=== PATIENT | female | born 1945 | race Caucasian/White ===

== ENCOUNTER 2022-10-13 12:32 | Emergency (ER) | payer MEDICARE, BC, SELFPAY ==
[2022-10-13] VITALS (8 sets, daily range): BP systolic 128–155; BP diastolic 72–86; PULSE 70–79; RESP 17–18; TEMP 36.7–36.9; O2SAT 93–96; BMI 29.9
--- NOTE | 2022-10-13 12:54 | XR_ITS ---
PROCEDURE INFORMATION: Exam: XR Left Shoulder Exam date and time: 10/13/2022 1:26 PM Age: 77 years old Clinical indication: Injury or trauma; Fall; Blunt trauma (contusions or hematomas); Shoulder; Left TECHNIQUE: Imaging protocol: Radiologic exam of the left shoulder. Views: 2 or more views. COMPARISON: No relevant prior studies available. FINDINGS: Bones/joints: There are moderate degenerative changes at the AC joint. Glenohumeral joint is fairly well preserved. No fracture, dislocation or malalignment. Soft tissues: Normal. IMPRESSION: No acute bony abnormalities.
--- NOTE | 2022-10-13 12:54 | CT_ITS ---
PROCEDURE INFORMATION: Exam: CT Head Without Contrast Exam date and time: 10/13/2022 1:29 PM Age: 77 years old Clinical indication: Injury or trauma; Fall; Blunt trauma (contusions or hematomas); Without loss of consciousness; Additional info: Fall-- yesterday -- right sided head pain TECHNIQUE: Imaging protocol: Computed tomography of the head without contrast. Radiation optimization: All CT scans at this facility use at least one of these dose optimization techniques: automated exposure control; mA and/or kV adjustment per patient size (includes targeted exams where dose is matched to clinical indication); or iterative reconstruction. REPORTING DATA: Count of CT and Cardiac NM exams in prior 12 months: This patient has received 3 known CTs and 0 known cardiac nuclear medicine studies in the 12 months prior to the current study. COMPARISON: No relevant prior studies available. FINDINGS: Brain: Age-related involutional changes and chronic microvascular ischemic disease. No evidence for acute transcortical infarct. No mass effect or midline shift. No extra-axial collection. No acute intracranial hemorrhage. Basal cisterns are patent. Cerebral ventricles: No ventriculomegaly. Paranasal sinuses: Visualized sinuses are unremarkable. No fluid levels. Mastoid air cells: Visualized mastoid air cells are well aerated. Orbital cavities: Bilateral cataract surgery. Left scleral banding. Bones/joints: Unremarkable. No acute fracture. Soft tissues: Unremarkable. IMPRESSION: No evidence for acute transcortical infarct, acute intracranial hemorrhage, or mass effect.
--- NOTE | 2022-10-13 12:54 | CT_ITS ---
PROCEDURE INFORMATION: Exam: CT Cervical Spine Without Contrast Exam date and time: 10/13/2022 1:32 PM Age: 77 years old Clinical indication: Injury or trauma; Fall; Blunt trauma TECHNIQUE: Imaging protocol: Computed tomography of the cervical spine without contrast. Radiation optimization: All CT scans at this facility use at least one of these dose optimization techniques: automated exposure control; mA and/or kV adjustment per patient size (includes targeted exams where dose is matched to clinical indication); or iterative reconstruction. REPORTING DATA: Count of CT and Cardiac NM exams in prior 12 months: This patient has received 3 known CTs and 0 known cardiac nuclear medicine studies in the 12 months prior to the current study. COMPARISON: CT HEAD/BRAIN WO CON 10/13/2022 1:29 PM FINDINGS: Bones/joints: No acute fracture or traumatic subluxation. No spondylolisthesis. The atlantooccipital and atlantoaxial articulations are intact. Occipital condyles are intact. Facet joint alignments are maintained. Age-related degenerative disc disease. Multilevel degenerative changes of the cervical spine. Prevertebral and retropharyngeal spaces: No prevertebral soft tissue swelling. Lungs: Lung apices are normal. Soft tissues: Unremarkable. IMPRESSION: No acute fracture or traumatic subluxation.
--- NOTE | 2022-10-13 12:54 | CT_ITS ---
PROCEDURE INFORMATION: Exam: CT Chest With Contrast; Diagnostic Exam date and time: 10/13/2022 1:39 PM Age: 77 years old Clinical indication: Injury or trauma; Fall; Blunt trauma (contusions or hematomas); Injury details: Whole left side hurts from shoulder to buttocks TECHNIQUE: Imaging protocol: Diagnostic computed tomography of the chest with contrast. Radiation optimization: All CT scans at this facility use at least one of these dose optimization techniques: automated exposure control; mA and/or kV adjustment per patient size (includes targeted exams where dose is matched to clinical indication); or iterative reconstruction. Contrast material: ISOVUE; Contrast volume: 75 ml; Contrast route: IV; REPORTING DATA: Count of CT and Cardiac NM exams in prior 12 months: This patient has received 3 known CTs and 0 known cardiac nuclear medicine studies in the 12 months prior to the current study. COMPARISON: CT CERVICAL SPINE WO CON 10/13/2022 1:32 PM FINDINGS: Lungs: Minor atelectatic changes left lung base otherwise lung raymond are aerated and clear. Pleural spaces: Unremarkable. No pneumothorax. No pleural effusion. Heart: Heart is not enlarged. No significant coronary artery calcifications detected. No significant pericardial effusion. Lymph nodes: Unremarkable. No enlarged lymph nodes. Vasculature: Unremarkable. No aortic aneurysm. Bones/joints: Old healed fractures left 10th rib. Chronic wedge-shaped compression fracture T12. No acute fractures detected. Moderate degenerative changes throughout the thoracic spine. Soft tissues: Unremarkable. IMPRESSION: 1. No acute abnormalities. No evidence of intrathoracic injury. 2. Old healed fracture left 9th rib and chronic compression fracture T12 vertebra.
[2022-10-13 12:58] LABS: Basophils # 0.1 K/mm3 (0-0.2); Basophils % 0.8 % (0.1-2.0); Eosinophils # 0.1 K/mm3 (0.0-0.4); Eosinophils % 2.3 % (0.1-12.0); Hematocrit 34.4 % (37.0-47.0); Hemoglobin 11.3 g/dL (12.2-16.2); Lymphocytes # 1.8 K/mm3 (0.7-4.5); Lymphocytes % 29.6 % (10-50); Mean Corpuscular HGB Conc 32.7 g/dL (31.8-35.4); Mean Corpuscular Hemoglobin 27.1 pg (27.0-31.2); Mean Corpuscular Volume 82.9 fl (81-99); Mean Platelet Volume 7.5 fl (7.4-10.4); Monocytes # 0.5 K/mm3 (0.1-1.0); Monocytes % 8.9 % (1.7-9.3); Neutrophils # 3.5 K/mm3 (1.8-7.8); Neutrophils % 58.4 % (37.0-80.0); Platelet Count 268 K/mm3 (142-424); Red Blood Count 4.15 M/mm3 (4.20-5.40); Red Cell Distribution Width 15.1 % (11.5-17.5)
[2022-10-13 12:59] LABS: Chloride 105 mmol/L (98-107); Potassium 4.5 mmoL/L (3.5-5.1); Sodium 137 mmol/L (136-145)
--- NOTE | 2022-10-13 13:00 | PC.NURSE ---
PT TO CT AT THIS TIME
[2022-10-13 13:02] LABS: Alanine Aminotransferase 18 U/L (12-78); Albumin Level 3.7 g/dl (3.5-5.0); Albumin/Globulin Ratio 1.5 (1.1-1.8); Alkaline Phosphatase 49 U/L (38-126); Anion Gap 5.5 mEq/L (5-15); Aspartate Amino Transferase 25 U/L (14-36); Bilirubin,Total 0.3 mg/dl (0.2-1.3); Blood Urea Nitrogen 12 mg/dl (7-17); Calcium 8.6 mg/dl (8.4-10.2); Carbon Dioxide 31 mmol/L (22.0-30.0); Creatinine Clearance Estimated 61 mL/min (50-200); Estimated Glomerular Filt Rate 81 ml/min (>60); GFR (African American) 98 ML/MIN (>60); Globulin 2.5 g/dL (1.3-3.2); Glucose 133 mg/dl (74-100); Total Protein,Serum 6.2 g/dl (6.3-8.2)
--- NOTE | 2022-10-13 13:16 | PC.NURSE ---
PT TO CT AT THIS TIME
--- NOTE | 2022-10-13 13:45 | CT_ITS ---
PROCEDURE INFORMATION: Exam: CT Abdomen And Pelvis With Contrast Exam date and time: 10/13/2022 1:39 PM Age: 77 years old Clinical indication: Injury or trauma; Fall; Blunt; Luq; Injury details: Patient fell yesterday at home left sided pain down through buttocks TECHNIQUE: Imaging protocol: Computed tomography of the abdomen and pelvis with contrast. Radiation optimization: All CT scans at this facility use at least one of these dose optimization techniques: automated exposure control; mA and/or kV adjustment per patient size (includes targeted exams where dose is matched to clinical indication); or iterative reconstruction. Contrast material: ISOVUE; Contrast volume: 75 ml; Contrast route: IV; REPORTING DATA: Count of CT and Cardiac NM exams in prior 12 months: This patient has received 3 known CTs and 0 known cardiac nuclear medicine studies in the 12 months prior to the current study. COMPARISON: No relevant prior studies available. FINDINGS: Lungs: Minor atelectatic changes left lung base.There is a small hiatal hernia. Liver: Small liver cyst dome of the liver otherwise liver is unremarkable. Gallbladder and bile ducts: Normal. No calcified stones. No ductal dilation. Pancreas: Unremarkable. Main pancreatic duct is not significantly dilated. Spleen: Normal. No splenomegaly. Adrenal glands: Normal. No mass. Kidneys and ureters: 3 cm benign-appearing left renal cyst otherwise kidneys are unremarkable. Stomach and bowel: There are multiple diverticuli throughout the distal portion of the large bowel without evidence of diverticulitis. Appendix: No evidence of appendicitis. Intraperitoneal space: Unremarkable. No free air. No significant fluid collection. Vasculature: Abdominal aorta and iliac vessels are diffusely calcified. There is no aortic aneurysm. Lymph nodes: Unremarkable. No enlarged lymph nodes. Urinary bladder: Unremarkable as visualized. Reproductive: Uterus has been removed. Bones/joints: Mild wedge compression fracture T12 probably longstanding. Old healed fractures left lower ribcage. Soft tissues: Unremarkable. IMPRESSION: 1. No acute findings within the abdomen or pelvis. 2. Chronic wedge-shaped compression fracture T12. 3. Colonic diverticulosis. No evidence of acute diverticulitis.
--- NOTE | 2022-10-13 13:46 | PC.NURSE ---
pt return from CT via stretcher
--- NOTE | 2022-10-13 13:46 | PC.NURSE ---
PT RETURNED FROM CT
--- NOTE | 2022-10-13 14:13 | PC.NURSE ---
DR BERRY AT BEDSIDE
--- NOTE | 2022-10-13 14:14 | HMH.EDGENADL ---
Discharge Plan Disposition Patient Disposition: Home, Self-Care Condition: Good Chief Complaint: Fall Referrals Follow up/Referrals: Provider,Referral, [Primary Care Provider] - See instructions Activity Restrictions/Add. Instructions Additional Instructions/Restrictions: Tylenol for pain. Follow-up with primary care provider if not improving in 4 to 5 days. Clinical Impressions Clinical Impression: Fall, Contusion of multiple sites Instructions Patient Instructions: How to Prevent Falls Discharge ED Provider: Jose Washburn General Adult HPI General Chief complaint: Fall Stated complaint: AO [id number] hurt chest area to back Time Seen by Provider: 10/13/22 14:00 Mode of Arrival: Wheelchair Limitations: No Limitations Description of Symptoms (Recalled from ER Triage Doc. by RN): PT REPORTS FALL ABOUT 0200 AM ON FRIDAY. PT WAS ATTEMPTING TO SIT DOWN, FELL FORWARD. LANDED ON CHEST, LEFT SHOULDER. C/O PAIN TO LEFT SIDE, CHEST AND NECK. BACK OF HEAD STRUCK A CHEST IN BATHROOM. DENIES LOC. NO BLOOD THINNERS History of Present Illness HPI narrative: Patient states that the night before last she was going to the bathroom at 2 in the morning attempted to sit down on the toilet and fell forward landing on a cedar chest. She says she hit on her left side. Denies loss of consciousness. She says that she hurts all over, pain along her left side of her thorax, left shoulder, head and neck pain, and pain in her right fourth toe, which is bruised. States that she has been weak for 2 weeks but has not seen her doctor for. She also has been short of breath for a month. Denies cough or URI symptoms. Denies vomiting and diarrhea. Denies urinary symptoms. Related Data Allergies Allergy/AdvReac Type Severity Reaction Status Date / Time morphine [MORPHINE] Allergy Unknown ANXIETY Unverified 08/05/17 15:17 [facility] Disclaimer: The information contained in this section may have been updated after the patient was seen, as this information can be updated by other users. Social History Smoking Status: Former smoker ROS Obtained: Yes Systems reviewed as appropriate & no additional complaints except as documented Constitutional Constitutional: Denies fever(s), Reports headache(s) and Reports weakness ENT Ears, Nose, Mouth, and Throat: Reports headache(s), Denies nasal discharge, Reports neck pain and Denies sore throat Cardiovascular Cardiovascular: Reports chest pain Respiratory Respiratory: Reports shortness of breath and Denies cough Gastrointestinal Gastrointestingal: Reports abdominal pain; Denies constipation, diarrhea or vomiting Genitourinary Female Genitourinary: Denies difficulty voiding, Denies dysuria and Denies flank pain Musculoskeletal Musculoskeletal: Reports neck pain and Denies numbness Neurologic Neurologic: Reports headache(s), Denies numbness and Reports weakness Physical Exam General General appearance: alert and in no apparent distress Head Head exam: atraumatic and normocephalic Eye Eye exam: Present normal appearance and EOMI ENT ENT exam: Present mucous membranes moist Neck Neck exam: Present normal inspection and trachea midline Chest Chest inspection: Present normal inspection and symmetric chest wall rise Respiratory Respiratory exam: Present normal lung sounds bilaterally; Absent respiratory distress Cardiovascular Cardiovascular exam: Present regular rate, normal rhythm and normal heart sounds Abdominal Exam Abdominal exam: Present soft and normal bowel sounds; Absent distention, tenderness, guarding, rebound or rigidity Extremities Exam Extremities exam: Present normal inspection Neurological Exam Neurological exam: Present alert and oriented X3 Psychiatric Psychiatric exam: Present normal affect and normal mood Skin Skin exam: Present warm and dry Medical Decision Making Chin Inquiry Pt receiving controlled substance: No Vital Signs: 10/13/22 12:34
--- NOTE | 2022-10-13 14:16 | PC.NURSE ---
PT ASSISTED TO BR
--- NOTE | 2022-10-13 14:17 | XR_ITS ---
PROCEDURE INFORMATION: Exam: XR Right Foot Exam date and time: 10/13/2022 2:35 PM Age: 77 years old Clinical indication: Patient HX: Patient fell yesterday morning. Right foot pain. ; Additional info: Injury TECHNIQUE: Imaging protocol: Radiologic exam of the right foot. Views: 3 or more views. COMPARISON: No relevant prior studies available. FINDINGS: Bones/joints: Bones are demineralized.. No fracture, dislocation or malalignment. Mild degenerative changes 1st MTP joint. Remaining joint surfaces for are fairly well preserved. Soft tissues: Normal. IMPRESSION: No acute bony abnormalities.
--- NOTE | 2022-10-13 14:23 | PC.NURSE ---
rad at BS for portable xray
--- NOTE | 2022-10-13 14:26 | PC.NURSE ---
XR AT BEDSIDE
[2022-10-13 14:27] LABS: Microscopic, Urine URINE MICROSCOPIC (MICROSCOPIC)
[2022-10-13 14:34] LABS: Appearance,Urine CLEAR (Clear); Bilirubin,Urine Negative (Negative); Blood, Urine Negative (Negative); Color,Urine YELLOW (Yellow); Glucose,Urine (UA) Negative (Negative); Ketones,Urine Negative (Negative); Leukocyte Esterase,Urine 1+ (Negative); Nitrate,Urine Negative (Negative); Protein,Urine Negative (Negative); Urobilinogen,Urine 0.2 EU/dl (0.2)
--- NOTE | 2022-10-13 14:59 | ECG_ITS ---
APPROVED REPORT Exam: Resting ECG HR:76 bpm ECG Measurements Heart Rate 76 AXES WA 188 P 60 QRSd 124 QRS -24 QT 420 T 31 QTc 451 Conclusion SINUS RHYTHM BORDERLINE LEFT AXIS DEVIATION [QRS AXIS < -20] RIGHT BUNDLE BRANCH BLOCK [120+ ms QRS DURATION, UPRIGHT V1, 40+ ms S IN I/aVL/V4/V5/V6] ABNORMAL ECG UNCONFIRMED REPORT Electronically signed by : Roosevelt Angeles MD 10/14/2022 19:25:07
[2022-10-13 15:22] LABS: Bacteria,Urine 2+ /lpf; Squamous Epithelial Cell,Urine Occasional #/hpf (0-5)
[2022-10-13 15:41] LABS: NT Pro Brain Natriuretic Pep. 231 pg/mL (0-450)
[2022-10-13 15:53] LABS: Troponin I < 0.01 ng/ml (0.00-0.034)
--- NOTE | 2022-10-13 16:29 | PC.NURSE ---
DR BERRY AT BEDSIDE TO UPDATE PT AND ON POC
== END 2022-10-13 16:45 | disposition home or self-care (01) ==
PROVIDERS: Emergency Provider Emergency Medicine
DX: R07.89 Other chest pain (principal); M25.512 Pain in left shoulder; R51.9 Headache, unspecified; M54.2 Cervicalgia; M79.674 Pain in right toe(s); W19.XXXA Unspecified fall, initial encounter; Z87.891 Personal history of nicotine dependence
CPT/HCPCS: 70450; 71260; 72125; 73030; 73630; 74177; 80053; 81001; 83880; 84484; 85025; 87086; 87088; 87186; 93005; 99285

== ENCOUNTER 2022-10-31 11:20 | Emergency (ER) | payer MEDICARE, BC, SELFPAY ==
--- NOTE | 2022-10-31 11:20 | ECG_ITS ---
APPROVED REPORT Exam: Resting ECG HR:77 bpm ECG Measurements Heart Rate 77 AXES QRSd 136 QRS -39 QT 381 T 78 QTc 413 Conclusion ATRIAL FIBRILLATION LEFT AXIS DEVIATION [QRS AXIS < -30] INTRAVENTRICULAR CONDUCTION DELAY [130+ ms QRS DURATION] MODERATE VOLTAGE CRITERIA FOR LVH, CONSIDER NORMAL VARIANT [MEETS CRITERIA IN ONE OF: R(aVL), S(V1), R(V5), R(V5/V6)+S(V1)] ABNORMAL ECG UNCONFIRMED REPORT Electronically signed by : Roosevelt Angeles MD 11/01/2022 17:20:10
[2022-10-31 11:29] VITALS: BP 152/52; PULSE 73; RESP 18; TEMP 36.8; O2SAT 94; BMI 28.3
[2022-10-31 11:31] VITALS: BP 115/52; PULSE 73; O2SAT 94
--- NOTE | 2022-10-31 11:32 | HMH.EDGENADL ---
Discharge Plan Disposition Patient Disposition: Home, Self-Care Prescriptions Prescriptions: New hydrocodone-acetaminophen 5-325 mg tablet 1 tab PO Q6H PRN (Reason: pain) 3 Days Qty: 12 0RF Activity Restrictions/Add. Instructions Additional Instructions/Restrictions: Please do your incentive spirometer 10 times a day while awake. Only take the pain medicine I prescribed if your pain is so much that you cannot take deep inspirations. You may take Tylenol and ibuprofen as needed as discussed but did not combine Tylenol with the prescribed medication. Return to the emergency department if you feel that you cannot care for yourself at home or if you develop a cough and fever. Clinical Impressions Clinical Impression: Fracture of rib, Fall Discharge ED Provider: Perla Herrera General Adult HPI General Chief complaint: PAIN Stated complaint: pain all over, s/p fall x3 weeks ago Time Seen by Provider: 10/31/22 11:32 History of Present Illness HPI narrative: Patient is a 77-year-old female accompanied by her today with persistent cervical spine pain and left chest wall pain following a fall several weeks ago. States that she came to [facility] had a trauma work-up done and was told she had no acute injuries subsequently went to another ED and told the same thing they went to her primary care doctor who told her she had rib fractures on the left. Therefore she is back in the ED. She is having difficulty with taking a deep breath and states the pain is preventing her from functioning normally but her is a very good job taking care of home she says. She denies any fevers chills or cough currently. Denies any anterior chest abdomen or pelvis pain. Denies any neurologic symptoms in her upper extremities or lower extremities. Related Data Previous Rx's Medication Instructions Recorded hydrocodone 5 mg-acetaminophen 325 1 tab PO Q6H PRN pain 3 days #12 10/31/22 mg tablet tabs Allergies Allergy/AdvReac Type Severity Reaction Status Date / Time morphine [MORPHINE] Allergy Unknown ANXIETY Verified 10/31/22 12:01 [facility] Disclaimer: The information contained in this section may have been updated after the patient was seen, as this information can be updated by other users. Social History Smoking Status: Never smoker alcohol intake: never current occupational status: other Travel in the last 8 weeks: None ROS Obtained: Yes All systems reviewed & no additional complaints except as documented Physical Exam General General appearance: alert Neck Neck exam: Present tenderness (Paraspinal muscle tenderness in the cervical spine) Chest Chest inspection: Present normal inspection and other (Left lateral chest wall pain focally just inferior to the level of the breast) Respiratory Respiratory exam: Present normal lung sounds bilaterally and other (Sats 95% on room air on my exam breathing normally); Absent respiratory distress, wheezes or stridor Cardiovascular Cardiovascular exam: Present regular rate; Absent tachycardia Abdominal Exam Abdominal exam: Present soft; Absent distention or tenderness Extremities Exam Extremities exam: Present other Neurological Exam Neurological exam: Present alert and oriented X3 Medical Decision Making Chin Inquiry Pt receiving controlled substance: No Vital Signs: 10/31/22 11:29 10/31/22 11:31 Temperature 98.2 F Temperature Source Oral Pulse Rate 73 Pulse Rate [Left Radial] 73 Respiratory Rate 18 Blood Pressure 115/52 L Blood Pressure [Right Arm] 152/52 H Blood Pressure Mean 73 Blood Pressure Mean [Right Arm] 85 02 Sat by Pulse Oximetry 94 L 94 L Oxygen Delivery Method Room Air Orders (Tests/Meds): ED MEDICATIONS Discontinued Medications Generic Name Dose Route Start Last Admin Trade Name Freq PRN Reason Stop Dose Admin Hydrocodone Bitart/Acetaminophen 1 tab 10/31/22 11:44 10/31/22 12:02 Hydrocodon
--- NOTE | 2022-10-31 11:41 | XR_ITS ---
FINAL REPORT CLINICAL HISTORY: fall COMPARISON: none FINDINGS: A single portable view of the chest was obtained. The heart size is enlarged. The pulmonary vascularity is within normal limits. The mediastinum is within normal limits. There are mild bibasilar opacities, favor atelectasis or scarring. The bony thorax is intact. IMPRESSION: Mild bibasilar opacities, favor atelectasis or scarring. Reviewed, Interpreted and Dictated by Josh Perry III, MD Transcribed by Val Sullivan Authenticated and [facility]
[2022-10-31 12:01] VITALS: BP 133/55; PULSE 72; O2SAT 95
[2022-10-31 12:31] VITALS: BP 123/62; PULSE 80; O2SAT 92
[2022-10-31 12:44] VITALS: BP 123/62; PULSE 80; RESP 18; TEMP 36.8; O2SAT 92
== END 2022-10-31 12:44 | disposition home or self-care (01) ==
PROVIDERS: Emergency Provider Student in an Organized Health Care Education/Training Program; PCP Nurse Practitioner Family
DX: M54.2 Cervicalgia (principal); R06.02 Shortness of breath; W01.0XXA Fall on same level from slipping, tripping and stumbling without subsequent striking against object, initial encounter
CPT/HCPCS: 71045; 93005; 99285